=== PATIENT | female | born 1995 | race Caucasian/White ===

== ENCOUNTER 2017-02-12 20:53 | Emergency (ER) | payer BC ==
[~2017-02-12] VITALS: Ht 160 cm; Wt 51.3 kg
[2017-02-12 20:58] VITALS: TEMP 36.3; Ht 160 cm; Wt 51.3 kg
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
[2017-02-12] MEDS ORDERED: LEVO150T PO (21:20)
[2017-02-12 21:35] LABS: HEMATOCRIT 41.1 % (37-47); MEAN CELL VOLUME 90.5 fL (80-100); MEAN CORPUSCULAR HEMOGLOBIN 31.5 pg (25-34); MEAN CORPUSCULAR HGB CONC 34.8 g/dl (32-36); MEAN PLATELET VOLUME 9.8 fL (7.4-10.4); PLATELET COUNT 214 K/uL (130-400); RED BLOOD COUNT 4.54 M/uL (4.2-5.4); WHITE BLOOD COUNT 6.51 K/uL (4.8-10.8)
[2017-02-12 21:52] LABS: BUN/CREATININE RATIO 14.7 (10-20); CALCIUM 9.2 mg/dl (8.5-10.1); CREATININE 0.86 mg/dl (0.60-1.20); POTASSIUM 4.1 mmol/L (3.5-5.1)
[2017-02-12 22:03] LABS: THYROID STIMULATING HORMONE 0.141 uIu/ml (0.300-4.500)
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
[2017-02-12 22:50] VITALS: BP 103/64; PULSE 73; O2SAT 97
== END 2017-02-12 22:50 | disposition home or self-care (01) ==
LOC: C.EDB 20:57 → C.EDC 22:50
DX: F07.81 Postconcussional syndrome (principal); S09.92XA Unspecified injury of nose, initial encounter; V00.121A Fall from non-in-line roller-skates, initial encounter; E03.1 Congenital hypothyroidism without goiter; Z83.3 Family history of diabetes mellitus; Z82.49 Family history of ischemic heart disease and other diseases of the circulatory system